=== PATIENT | female | born 1995 | race Caucasian/White ===

== ENCOUNTER 2020-07-11 17:33 | Emergency (ER) | payer SELFPAY ==
[~2020-07-11] VITALS: Ht 170.2 cm; Wt 135.2 kg
[2020-07-11 17:58] VITALS: Ht 170.2 cm; Wt 135.2 kg
[2020-07-11 19:00] VITALS: BP 140/82
== END 2020-07-11 19:00 | disposition home or self-care (01) ==
LOC: ED 17:33
DX: N64.89 Other specified disorders of breast (principal); N64.4 Mastodynia